=== PATIENT | female | born 1990 | race Caucasian/White ===

== ENCOUNTER 2017-06-17 22:41 | Emergency (ER) | payer OTHER ==
[~2017-06-17] VITALS: Ht 167.6 cm; Wt 61.5 kg
[2017-06-17 22:46] VITALS: Ht 167.6 cm; Wt 61.5 kg
--- NOTE | 2017-06-18 03:29 | ERD ---
ER Documentation Chief Complaint Date/Time DATE: 06/18/17 TIME: 03:27 Chief Complaint left hand pain piece of wood fell on left hand HPI 26-year-old female presents here in emergency department for complaints of left hand pain after these avoid snapped on her hand. Patient described the pain as throbbing pain, 6/10 scale, is worse upon movement accompanied with swelling and bruising. This happened yesterday. Patient denies any numbness or tingling. Patient did not take any medications to help with symptoms. ROS All systems reviewed and are negative except as per history of present illness. Medications Home Meds Reported Medications [none] Unknown Strength No Conflict Check 06/18/17 Allergies Allergies: Coded Allergies: No Known Allergy (Unverified , 06/17/17) PMhx/Soc Medical and Surgical Hx: pt denies Medical Hx, pt denies Surgical Hx Hx Alcohol Use: No Hx Substance Use: No Hx Tobacco Use: No Smoking Status: Never smoker FmHx Family History: No coronary disease, No diabetes, No other Physical Exam Vitals Vital Signs Date Time Temp Pulse Resp B/P Pulse Ox O2 Delivery O2 Flow Rate FiO2 06/17/17 22:46 98.2 76 20 103/66 98 Physical Exam GENERAL: The patient is well developed and appropriate for usual state of health, in no apparent distress. CHEST: Clear to auscultation bilaterally. There are no rales, wheezes or rhonchi. HEART: Regular rate and rhythm. No murmurs, clicks, rubs or gallops. No S3 or S4. ABDOMEN: Soft, nontender and nondistended. Good bowel sounds. No rebound or guarding. No gross peritonitis. No gross organomegaly or masses. No Parsons sign or McBurney point tenderness. BACK: No midline or flank tenderness. EXTREMITIES: Tenderness on palpation on the palmar aspect of the left hand, near the level of the left thumb area, with some ecchymosis noted. Able to do full range of motion without any restriction.Equal pulses bilaterally. There is no peripheral clubbing, cyanosis or edema. No focal swelling or erythema. Full range of motion. Grossly neurovascularly intact. NEURO: Alert and oriented. Cranial nerves 2-12 intact. Motor strength in all 4 extremities with 5/5 strength. Sensation grossly intact. Normal speech and gait. SKIN: There is no apparent rash or petechia. The skin is warm and dry. HEMATOLOGIC AND LYMPHATIC: There is no evidence of excessive bruising or lymphedema. No gross cervical, axillary, or inguinal lymphadenopathy. Results 24 hrs PROCEDURE: Left hand x-ray CLINICAL INDICATION: Pain, trauma TECHNIQUE: AP, lateral and oblique views of the left hand were obtained. COMPARISON: None FINDINGS: There is normal mineralization. No acute fracture or dislocation is seen. There is no significant soft tissue swelling. IMPRESSION: Normal x-ray of the left hand x-ray . RPTAT: HJES .Samm Parson MD, MD Date Time Electronically viewed and signed by .Samm Parson MD, MD on 06/18/2017 04:15 .S/ CC: ADIEL RAE [employer]IC ADVISER Procedures/MDM Medical Decision Making: Patient's pain is most likely consistent with a contusion or a sprain. There is no suspicion for neurovascular compromise. Patient has intact sensation and circulation of the affected extremity. There is low suspicion for septic arthritis. Patient does not have any fever. Radiology exams of the affected area does not show any fracture or dislocation. Disposition: Home. Patient is given prescription for ibuprofen for pain, tramadol for severe pain. Patient was advised to elevate the affected area and apply ice on affected area. Patient was advised that if symptoms are worse, numbness, tingling, high fever, unable to move joint, worsening symptoms, to return to emergency department immediately. Otherwise, patient is advised to follow up with the primary care doctor in 5-7 days for reevaluation of symptoms. Departure Diagnosis: Primary Impression: Hand contusion Encounter type: initial encounter Laterality: left Qualified Code: S60.222A - Contusion of left hand, initial encounter Condition: Stable Patient Instructions: Contusion, Hand Additional Instructions: Patient is given prescription for ibuprofen for pain, tramadol for severe pain. Patient was advised to elevate the affected area and apply ice on affected area. Patient was advised that if symptoms are worse, numbness, tingling, high fever, unable to move joint, worsening symptoms, to return to emergency department immediately. Otherwise, patient is advised to follow up with the primary care doctor in 5-7 days for reevaluation of symptoms. ADIEL RAE NP Jun 18, 2017 03:29
--- NOTE | 2017-06-18 04:15 | RADRPT ---
PROCEDURE: Left hand x-ray CLINICAL INDICATION: Pain, trauma TECHNIQUE: AP, lateral and oblique views of the left hand were obtained. COMPARISON: None FINDINGS: There is normal mineralization. No acute fracture or dislocation is seen. There is no significant soft tissue swelling. IMPRESSION: Normal x-ray of the left hand x-ray . RPTAT: HJES .Samm Parson MD, MD Date Time Electronically viewed and signed by .Samm Parson MD, on 06/18/2017 04:15 .S/
[2017-06-18] MEDS ORDERED: TRAM50TA2 PO (04:21)
[2017-06-18] MEDS ORDERED: IBUP-1542 PO (04:21)
[2017-06-18 04:55] VITALS: BP 110/71; PULSE 75; RESP 16
== END 2017-06-18 04:55 | disposition home or self-care (01) ==
LOC: FTE 22:41
DX: S60.222A Contusion of left hand, initial encounter (principal); W20.8XXA Other cause of strike by thrown, projected or falling object, initial encounter; Y92.9 Unspecified place or not applicable
CPT/HCPCS: 73130; Z7502